=== PATIENT | female | born 2000 | race Caucasian/White ===

== ENCOUNTER 2024-12-31 14:47 | Emergency (ER) | payer BC, SELFPAY ==
[2024-12-31 15:17] VITALS: BP 104/54
[2024-12-31 15:30] LABS: % Basophils 0.4 % (0-2); % Eosinophils 1.3 % (0-6); % Immature Granulocytes 0.1 % (0-0.5); % Monocytes 9.5 % (1.7-9.3); % Neutrophils 59.7 % (42.2-75.2); Absolute Eosinophils 0.1 10^3/uL (0-0.7); Absolute Lymphocytes 2.1 10^3/uL (1.2-3.4); Absolute Monocytes 0.7 10^3/uL (0.1-0.6); Absolute Neutrophils 4.3 10^3/uL (1.4-6.5); Hematocrit 37.9 % (37.0-47.0); Hemoglobin 12.7 g/dL (12.0-16.0); Mean Corp Hgb Conc. 33.5 g/dL (33.0-37.0); Mean Corpuscular Hgb 28.9 pg (27.0-31.0); Mean Corpuscular Volume 86.1 fL (81.0-99.0); Mean Platelet Volume 9.8 fL (7.4-10.4); Nucleated Red Blood Cells % 0 %; Platelet Count 237 10^3/uL (130-400); Red Cell Dist. Width 12.7 % (11.5-14.5); White Blood Cell Count 7.2 10^3/uL (4.8-10.8)
[2024-12-31 15:51] LABS: HCG, Serum Qualitative Screen Negative
[2024-12-31 15:59] LABS: ALT (SGPT) 12 U/L (0-35); AST (SGOT) 18 U/L (14-36); Albumin 4.2 g/dl (3.5-5.0); Alkaline Phosphatase 59 U/L (38-126); Blood Urea Nitrogen 13 mg/dl (7-17); Calcium 9.5 mg/dl (8.4-10.2); Carbon Dioxide 25 mmol/L (22-30); Chloride 107 mmol/L (98-107); Glucose 98 mg/dl (70-99); Potassium 4.3 mmol/L (3.5-5.1); Sodium 138 mmol/L (135-145); Total Bilirubin 0.4 mg/dl (0.2-1.3); Total Protein 7.3 g/dl (6.3-8.2); eGFR > 60.00
--- NOTE | 2024-12-31 18:36 | ED.GENMED ---
History of Present Illness
General
Chief Complaint: Vaginal Bleeding
Source: patient
Exam Limitations: none
Time Seen by Provider: 12/31/24 18:33
Nursing documentation reviewed up to this point in time: agreed with
History of Present Illness
History of Present Illness:
TIME OF INITIAL EVALUATION
-18:33
REVIEW OF OLD RECORDS
- No prior records
CHIEF COMPLAINT(S)
Vaginal bleeding.
HISTORY OF PRESENT ILLNESS
The patient is a 24-year-old female presenting with post-coital vaginal bleeding. She reports that the bleeding was noted during intercourse with her boyfriend last Tuesday night. The bleeding was described as a significant amount of bright red
blood which continued until this morning, now noted to be very faint. She denies experiencing pain during the incident but reported experiencing pain during intercourse about a week prior, attributed to possible discomfort or mental block at the
time. She denies any associated fever, chills, abdominal/pelvic pain, lightheadedness, dizziness, urinary symptoms, or abnormal vaginal discharge.,
She has not experienced any similar episodes in the past.
The last menstrual period was approximately two weeks ago, and she is currently using a control pill. She denies any history of intrauterine devices (IUD).
The patient has a recent history of Chlamydia treated with doxycycline, approximately a month and a half ago. She states that both her and her boyfriend were treated at the time.
PHYSICAL EXAM
- Vitals: Vital signs stable. Afebrile
- General: Well appearing in no distress
- HEENT: Moist oral mucosa
- Cardiovascular: No murmurs, normal heart rate, regular rhythm.
- Pulmonary: No respiratory distress, breath sounds are clear and equal
- Abdomen: Soft and nontender. No rebound tenderness or guarding.
- Pelvic: External genitalia without lesions, ulcerations, or rash. Vaginal vault without evidence of lesion, ulceration, or lacerations. Physiologic discharge present. Erythema surrounding cervical os without current bleeding or lacerations noted.
- Neurologic:Excellent strength all extremities, no coordination deficits.
- Psychiatric: Appropriate mental status, normal insight and judgement
- Extremities: Nontender, no edema, moves all extremities equally
- Skin: No rash, no lesions
PLAN
- Check basic labs and UA
- Obtain a pelvic ultrasound to assess for any abnormalities.
- Perform a speculum exam to visualize the cervix and vaginal canal to identify any sources of bleeding.
- Advise the patient to follow up with her [facility] and consider an earlier visit based on findings.
DIFFERENTIAL DIAGNOSIS
The Differential Diagnosis includes, in no particular order and is not limited to:
- Cervical polyp
- Vaginal laceration
- Cervicitis
- Vaginal atrophy
- Endometrial hyperplasia
- Cervical ectropion
- Vaginal infection
- Vaginal trauma
- Coagulation disorder
- Ectopic
RADIOLOGY
- Pelvic US without acute abnormalities
LABS
- CBC without acute abnormalities. Hemoglobin normal. Chemistry unremarkable. HCG negative. UA reveals no evidence of infection
UPDATE
- Patient remains well and comfortable appearing, in no apparent distress. She has not evidence of active bleeding and normal vital signs.
Disposition:
SUMMARY OF ENCOUNTER
The patient presented to the emergency department with post-coital vaginal bleeding starting during intercourse and continuing until the morning of evaluation. A pelvic ultrasound was performed and showed no acute abnormalities. A urine test was
performed and was normal, showing no signs of infection or active bleeding. Labs reveal stable hemoglobin. The patients clinical presentation and findings on speculum exam suggest possible cervical ectropion, and the bleeding had stopped by the time
of evaluation. No evidence of laceration on exam. No clear evidence of STI on exam however did send swabs for GC/Chlamydia given recent infection.
PLAN
The patient is advised to follow-up with her [facility] and notify them of her ER visit to potentially adjust her appointment. The patient is recommended to observe pelvic rest until her visit. The patient should monitor for any signs of infection such
as fever, severe lower abdominal pain, or unusual discharge and return if they occur. Continuation of control pills is advised.
MEDICAL DECISION MAKING
The primary concern was the post-coital vaginal bleeding, which was investigated with an ultrasound and urinalysis, both yielding normal results. The working diagnosis is cervical ectropion given the physical exam findings and cessation of bleeding.
Differential diagnoses considered included cervical polyp, cervicitis, and other causes typical of such symptoms; however, these were less supported by available evidence. Will contact patient if GC/Chlamydia swabs results positive however given
patient asymtomatic and recently completed appropriate tx with doxycycline will hold empiric abx at this time as overall low suspicion for infectious process today.
PATHOLOGIES TO CONSIDER
Cervical ectropion is considered due to the cessation of bleeding and lack of other significant findings. Other pathology considerations included cervicitis or similar infections and other causes of abnormal cervical or vaginal bleeding, but current
evidence does not strongly support these.
Review of Systems
Review of Systems
Allergies reviewed?: Yes
All Other Systems: ROS reviewed and negative except as documented in HPI and ROS
Phy Exam
Physical Exam
Physical Exam:
See HPI
Course
Orders/Labs/Results
Orders:
Orders
12/31/24 15:18
Test Result ONCE
12/31/24 15:22
Complete Blood Count/With Diff Urgent
Comprehensive Metabolic Panel Urgent
HCG, Serum Qualitative Screen Urgent
Comment: Notify provider if positive test present
12/31/24 18:48
Pelvis & Transvaginal US [US Pelvis W Transvag Combined] Urgent
Comment:
Reason For Exam: Lower abdominal discomfort; postcoital bleeding
12/31/24 20:41
Urinalysis Reflex To Culture Urgent
Date Specimen was Collected: 12/31/24
Time Specimen was Collected: 20:40
Chlamydia/GC by PCR Urgent
MARITZA Source: Endo-Cervical
Specimen Description:
Source:: CERVIX
Date Specimen was Collected: 12/31/24
Time Specimen was Collected: 20:40
Abnormal Lab Results
12/31/24
15:22
Absolute Monos (auto) 0.7 H 10^3/uL
(0.1-0.6)
Monocytes % 9.5 H %
(1.7-9.3)
12/31/24 15:22
12/31/24 15:22
Vital Signs
Initial and Last Documented VS:
Initial Vital Signs
Temp Pulse Resp Pulse Ox
98.5 F 104 18 99
12/31/24 15:15 12/31/24 15:15 12/31/24 15:15 12/31/24 15:15
Last Documented Vital Signs
Temp Pulse Resp BP Pulse Ox
98.5 F 95 16 104/54 99
12/31/24 15:15 12/31/24 20:59 12/31/24 20:59 12/31/24 15:17 12/31/24 20:59
*Radiology
Radiology exam reviewed: radiology read reviewed
*Pulse Oximetry
SaO2: 99
Oxygen Mode of Delivery: Room air
Patient hypoxic: no
*EKG
Interpreted by ED Provider?: NA
*Cigar Head Pegger Interpretation
Rate: Cigar Head Pegger- N/A
*Critical Care Note
Total Time (30-74mins, 75-104mins- exclusive of procedures): Not Applicable
ED Attending Note
-
Portions of this chart may have been created with voice recognition software.� Occasional wrong word or��sound alike� substitutions may have occurred due to the inherent limitations of voice recognition software.
Discharge Plan
Departure
Patient Disposition: Home (Routine Discharge)
Date of Disposition: 12/31/24
Time of Disposition: 20:57
Patient with high blood pressure during this ER visit?: No
Condition: Good
Covid-19: Not Applicable
Discharge Problem:
Vaginal bleeding
Referrals:
NONE,* [Family Provider, Internal Medicine]
Activity Restrictions/Additional Instructions:
RETURN TO THE EMERGENCY DEPARTMENT WITH ANY PERSISTENT/HEAVY VAGINAL BLEEDING, SHORTNESS OF BREATH, CHEST PAIN, SEVERE ABDOMINAL PAIN, FEVERS, INTRACTABLE NAUSEA/VOMITING, ABNORMAL VAGINAL DISCHARGE OR PELVIC PAIN, WORSENING IN CURRENT SYMPTOMS, OR
ANY OTHER CONCERNS
- As discussed�your lab work showed no acute abnormalities. Your urine did not appear infected. The pelvic ultrasound showed no acute abnormalities.
- I suspect you likely the bleeding may be due to a cervical ectropion, or other cervical irritation/infection. We will contact you if your gonorrhea/chlamydia test is positive.
- I would adhere to pelvic rest until you are cleared by CARPENTER/LABOR.
- Call your CARPENTER/LABOR tomorrow for further evaluation/management. Follow-up as recommended
Monitor your symptoms closely and return to the emergency department with any acute worsening/new symptoms or any other concerns
Interventions
Interventions:
*Risk Screen - Suicide Last Done: 12/31/24 15:17
*General Assessment Last Done: 12/31/24 19:44
*Neglect/Abuse Screening Last Done: 12/31/24 19:44
*ED- Fall Risk Assessment Last Done: 12/31/24 19:44
*Nursing Disposition Last Done: 12/31/24 21:06
ED-Female Genitourinary Assessment Last Done: 12/31/24 19:44
Discharge Date and Time
Discharge Date/Time: 12/31/24 21:08
Print Language: [id number]
[2024-12-31 20:50] LABS: Urine Albumin Negative (Neg - Trace); Urine Bilirubin Negative (Negative); Urine Character Clear (Clear); Urine Glucose Negative (Negative); Urine Ketone Negative (Negative); Urine Leukocyte Negative (Negative); Urine Nitrite Negative (Negative); Urine Occult Blood Negative (Negative); Urine Urobilinogen Negative (Neg - 1+)
[2024-12-31 20:51] LABS: Urine Color Straw
== END 2024-12-31 21:08 | disposition home or self-care (01) ==
LOC: EMR 14:47
PROVIDERS: Emergency Medicine; Physician Assistant; EMERGENCY PHYSICIAN Emergency Medicine
DX: N93.9 Abnormal uterine and vaginal bleeding, unspecified (principal)
CPT/HCPCS: 99284; 76830; 76856; 80053; 81003; 84703; 85025; 87491; 87591